=== PATIENT | female | born 1985 ===

== ENCOUNTER → 2017-06-15 | Outpatient (CLI) | payer OTHER ==
--- NOTE | 2017-06-15 08:19 | CT ---
EXAMINATION TYPE: CT chest wo con DATE OF EXAM: 06/15/2017 COMPARISON: NONE HISTORY: ILD CT DLP: 240.4 mGycm High-resolution noncontrast CT of the chest was performed with the patient in the prone and supine po sitions. Lung and mediastinal window settings are submitted. The lungs appear to be well-aerated. I do not see evidence for fibrotic change. There is no eviden ce for bronchiectasis, groundglass infiltrate, nodule or mass. No pleural effusion is identified. I do not see evidence for hilar or mediastinal mass or adenopathy. IMPRESSION: No significant abnormality is seen. Correlate clinically.
== END | disposition home or self-care (01) ==
LOC: RADCTMAIN 07:51
PROVIDERS: ATTEND Internal Medicine
DX: J84.9 Interstitial pulmonary disease, unspecified (principal)
CPT/HCPCS: 71250

== ENCOUNTER → 2022-10-21 | Outpatient (CLI) | payer BC | END | disposition home or self-care (01) | LOC: LABWHC1 13:42 | PROVIDERS: ATTEND Internal Medicine | DX: M06.09 Rheumatoid arthritis without rheumatoid factor, multiple sites (principal) | CPT/HCPCS: 36415; 86480 ==

== ENCOUNTER 2023-05-29 14:11 | Emergency (ER) | payer BC ==
--- NOTE | 2023-05-29 14:48 | ED ---
General Adult HPI - General Source: patient Mode of arrival: ambulatory Limitations: no limitations <Jovita Ward - Last Filed: 05/29/23 14:47> <Robby Fernando - Last Filed: 05/29/23 22:26> - General Chief complaint: Abdominal Pain Stated complaint: Abd pain - History of Present Illness Initial comments: 37-year-old female presents to the emergency department chief complaint of abdominal pain 1 month. She states that recently the pain has gotten longer in duration. She states that it is in her mid to lower abdomen. She denies any aggravating factors. She states that the last 2 days she feels that her bowel movements have been different than they typically are. (Jovita Ward) 37-year-old female with past medical history significant for rheumatoid arthritis presents to ED with a chief complaint of abdominal pain. Patient states for the past month has had pain across her lower abdomen that is waxing and waning in nature. States that she intermittently experiences worsening episodes of the pain lasting 2-3 hours. Rates when pain becomes severe becomes an 8 out of 10 in severity and it makes her nauseous. States when pain improves it is at a constant 1 in severity. Also notes lately that she has been having more small bowel movements compared to her usual bowel movements. Denies urinary symptoms. Denies chest pain or shortness breath. No other complaints. (Robby Fernando) - Related Data Allergies Allergy/AdvReac Type Severity Reaction Status Date / Time No Known Allergies Allergy Verified 05/29/23 14:28 Review of Systems ROS Other: All systems not noted in ROS Statement are negative. <Jovita Ward - Last Filed: 05/29/23 14:47> ROS Other: All systems not noted in ROS Statement are negative. <Robby Fernando - Last Filed: 05/29/23 22:26> ROS Statement: Those systems with pertinent positive or pertinent negative responses have been documented in the HPI. Past Medical History Additional Past Medical History / Comment(s): RA History of Any Multi-Drug Resistant Organisms: None Reported Past Surgical History: Section Past Psychological History: No Psychological Hx Reported Smoking Status: Never smoker Past Alcohol Use History: Rare Past Drug Use History: None Reported <Jovita Ward - Last Filed: 05/29/23 14:47> General Exam Limitations: no limitations <Jovita Ward - Last Filed: 05/29/23 14:47> Limitations: no limitations General appearance: alert, in no apparent distress Eye exam: Present: normal appearance Neck exam: Present: normal inspection Respiratory exam: Present: normal lung sounds bilaterally Cardiovascular Exam: Present: regular rate, normal rhythm GI/Abdominal exam: Present: soft (Minimsl suprapubic tenderness to palpation. No rebound guarding or rigidity. No overlying skin changes.), normal bowel sounds Neurological exam: Present: alert, oriented X3 Skin exam: Present: warm, dry <Robby Fernando - Last Filed: 05/29/23 22:26> - General Exam Comments Initial Comments: Visual Physical Exam Vital signs reviewed General: Well-appearing, nontoxic, no acute distress. Head: Normocephalic, atraumatic Eyes: PERRLA, EOMI ENT: Airway patent Chest: Nonlabored breathing Skin: No visual rash, normal skin tone Neuro: Alert and oriented 3 Musculoskeletal: No gross abnormalities (Jovita Ward) Course Vital Signs 05/29/23 05/29/23 14:24 19:37 Temperature 98.9 F 98.2 F Pulse Rate 69 62 Respiratory 18 16 Rate Blood Pressure 123/69 108/71 O2 Sat by Pulse 99 97 Oximetry Medical Decision Making <Jovita Ward - Last Filed: 05/29/23 14:47> - Lab Data Result diagrams: 05/29/23 18:57 05/29/23 18:57 <Robby Fernando - Last Filed: 05/29/23 22:26> - Medical Decision Making I preformed the quick note portion of this chart. Electronically signed by Jvoita Ward PA-C. (Jovita Ward) Was pt. sent in by a medical professional or institution (JULIETTE Castro, ASSISTANT BASEBALL COACH, urgent care, hospital, or halfway...) When possible be specific @ -No Did you speak to anyone other than the patient for history (EMS, parent, family, police, friend...)? What history was obtained from this source @ -No Did you review nursing and triage notes (agree or disagree)? Why? @ -I reviewed and agree with nursing and triage notes Were old charts reviewed (outside hosp., previous admission, EMS record, old EKG, old radiological studies, urgent care reports/EKG's, halfway records)? Report findings @ -No old charts were reviewed Differential Diagnosis (chest pain, altered mental status, abdominal pain women, abdominal pain men, vaginal bleeding, weakness, fever, dyspnea, syncope, headache, dizziness, GI bleed, back pain, seizure, CVA, palpatations, mental health, musculoskeletal)? @ -Differential Abdominal Pain Women: Appendicitis, Cholecystitis, diverticulosis, ischemic bowel, pancreatitis, hepatitis, UTI, gastroenteritis, AAA, incarcerated hernia, bowel obstruction, constipation, inflammatory bowel, hepatitis, peptic ulcer disease, splenic infarction, perforated viscus, vulvitis, ovarian torsion, PID, kidney stone, placenta abruption, this is not meant to be an all-inclusive list EKG interpreted by me (3pts min.). @ -None X-rays interpreted by me (1pt min.). @ -None done CT interpreted by me (1pt min.). @ -None done U/S interpreted by me (1pt. min.). @ -None done What testing was considered but not performed or refused? (CT, X-rays, U/S, labs)? Why? @ -None What meds were considered but not given or refused? Why? @ -None Did you discuss the management of the patient with other professionals (professionals i.e. , PA, ASSISTANT BASEBALL COACH, lab, RT, psych nurse, social work faculty member, airframe and power plant mechanic, teacher, ground nuclear weapons assembly officer, case briefer)? Give summary @ -No Was smoking cessation discussed for >3mins.? @ -No Was critical care preformed (if so, how long)? @ -No Were there social determinants of health that impacted care today? How? (Homelessness, low income, unemployed, alcoholism, drug addiction, transportation, low edu. Level, literacy, decrease access to med. care, long term, rehab)? @ -No Was there de-escalation of care discussed even if they declined (Discuss DNR or withdrawal of care, Hospice)? DNR status @ -No What co-morbidities impacted this encounter? (DM, HTN, Smoking, COPD, CAD, Cancer, CVA, ARF, Chemo, Hep., AIDS, mental health diagnosis, sleep apnea, morbid obesity)? @ -None Was patient admitted / discharged? Hospital course, mention meds given and route, prescriptions, significant lab abnormalities, going to OR and other pertinent info. @ -Discharge 37-year-old female with no significant past medical history presenting for waxing waning lower abdominal pain for the past month and recent smaller bowel movements. The abdomen and pelvis showed no acute findings are incidental finding of adrenal lipoma versus mass. Patient discharged home in stable condition. Advised establishing PCP for proper follow-up. Discussed return precautions with patient who verbalizes agreement. Undiagnosed new problem with uncertain prognosis? @ -No Drug Therapy requiring intensive monitoring for toxicity (Heparin, Nitro, Insulin, Cardizem)? @ -No Were any procedures done? @ -No Diagnosis/symptom? @ -Abdominal pain Acute, or Chronic, or Acute on Chronic? @ - Acute On chronic Uncomplicated (without systemic symptoms) or Complicated (systemic symptoms)? @ -Uncomplicated Side effects of treatment? @ -No Exacerbation, Progression, or Severe Exacerbation? @ -No Poses a threat to life or bodily function? How? (Chest pain, [place], [place], pneumonia, PE, COPD, DKA, ARF, appy, cholecystitis, CVA, Diverticulitis, Homicidal, Suicidal, threat to staff... and all critical care pts) @ -No (Robby Fernando) - Lab Data Lab Results 05/29/23 05/29/23 05/29/23 Range/Units 18:57 18:57 18:57 WBC 8.3 (3.8-10.6) k/uL RBC 4.57 (3.80-5.40) m/uL Hgb 14.1 (11.4-16.0) gm/dL Hct 42.9 (34.0-46.0) % MCV 93.8 (80.0-100.0) fL MCH 31.0 (25.0-35.0) pg MCHC 33.0 (31.0-37.0) g/dL RDW 12.0 (11.5-15.5) % Plt Count 224 (150-450) k/uL MPV 7.7 Neutrophils % 54 % Lymphocytes % 28 % Monocytes % 4 % Eosinophils % 13 % Basophils % 0 % Neutrophils # 4.4 (1.3-7.7) k/uL Lymphocytes # 2.3 (1.0-4.8) k/uL Monocytes # 0.3 (0-1.0) k/uL Eosinophils # 1.0 H (0-0.7) k/uL Basophils # 0.0 (0-0.2) k/uL Sodium 138 (137-145) mmol/L Potassium 4.2 (3.5-5.1) mmol/L Chloride 103 (98-107) mmol/L Carbon Dioxide 25 (22-30) mmol/L Anion Gap 10 mmol/L BUN 19 H (7-17) mg/dL Creatinine 0.60 (0.52-1.04) mg/dL Est GFR (CKD-EPI)AfAm >90 (>60 ml/min/1.73 sqM) Est GFR (CKD-EPI)NonAf >90 (>60 ml/min/1.73 sqM) Glucose 107 H (74-99) mg/dL Plasma Lactic Acid Chucky 0.9 (0.7-2.0) mmol/L Calcium 9.6 (8.4-10.2) mg/dL Total Bilirubin 1.7 H (0.2-1.3) mg/dL AST 23 (14-36) U/L ALT 23 (4-34) U/L Alkaline Phosphatase 56 (38-126) U/L Total Protein 7.9 (6.3-8.2) g/dL Albumin 4.5 (3.5-5.0) g/dL Amylase 45 (30-110) U/L Lipase 67 (23-300) U/L Urine Color Urine Appearance (Clear) Urine pH (5.0-8.0) Ur Specific [place] (1.001-1.035) Urine Protein (Negative) Urine Glucose (UA) (Negative) Urine Ketones (Negative) Urine Blood (Negative) Urine Nitrite (Negative) Urine Bilirubin (Negative) Urine Urobilinogen (<2.0) mg/dL Ur Leukocyte Esterase (Negative) Urine HCG, Qual (Not Detectd) 05/29/23 05/29/23 Range/Units 18:57 18:57 WBC (3.8-10.6) k/uL RBC (3.80-5.40) m/uL Hgb (11.4-16.0) gm/dL Hct (34.0-46.0) % MCV (80.0-100.0) fL MCH (25.0-35.0) pg MCHC (31.0-37.0) g/dL RDW (11.5-15.5) % Plt Count (150-450) k/uL MPV Neutrophils % % Lymphocytes % % Monocytes % % Eosinophils % % Basophils % % Neutrophils # (1.3-7.7) k/uL Lymphocytes # (1.0-4.8) k/uL Monocytes # (0-1.0) k/uL Eosinophils # (0-0.7) k/uL Basophils # (0-0.2) k/uL Sodium (137-145) mmol/L Potassium (3.5-5.1) mmol/L Chloride (98-107) mmol/L Carbon Dioxide (22-30) mmol/L Anion Gap mmol/L BUN (7-17) mg/dL Creatinine (0.52-1.04) mg/dL Est GFR (CKD-EPI)AfAm (>60 ml/min/1.73 sqM) Est GFR (CKD-EPI)NonAf (>60 ml/min/1.73 sqM) Glucose (74-99) mg/dL Plasma Lactic Acid Chucky (0.7-2.0) mmol/L Calcium (8.4-10.2) mg/dL Total Bilirubin (0.2-1.3) mg/dL AST (14-36) U/L ALT (4-34) U/L Alkaline Phosphatase (38-126) U/L Total Protein (6.3-8.2) g/dL Albumin (3.5-5.0) g/dL Amylase (30-110) U/L Lipase (23-300) U/L Urine Color Colorless Urine Appearance Clear (Clear) Urine pH 6.0 (5.0-8.0) Ur Specific [place] 1.008 (1.001-1.035) Urine Protein Negative (Negative) Urine Glucose (UA) Negative (Negative) Urine Ketones Negative (Negative) Urine Blood Negative (Negative) Urine Nitrite Negative (Negative) Urine Bilirubin Negative (Negative) Urine Urobilinogen <2.0 (<2.0) mg/dL Ur Leukocyte Esterase Negative (Negative) Urine HCG, Qual Not Detected (Not Detectd) Disposition <Jovita Ward - Last Filed: 05/29/23 14:47> Is patient prescribed a controlled substance at d/c from ED?: No Time of Disposition: 22:26 <Robby Fernando - Last Filed: 05/29/23 22:26> Clinical Impression: Abdominal pain Disposition: HOME SELF-CARE Condition: Poor Instructions (If sedation given, give patient instructions): Abdominal Pain (ED) Additional Instructions: Please return to the Emergency Department if symptoms worsen or any other concerns. Referrals: None,Stated [Primary Care Provider] - 1-2 days
[2023-05-29 19:20] LABS: Basophils % (A) 0 %; Eosinophils % (A) 13 %; HCT 42.9 % (34.0-46.0); HGB 14.1 gm/dL (11.4-16.0); Lymphocytes # (A) 2.3 k/uL (1.0-4.8); Lymphocytes % (A) 28 %; MCV 93.8 fL (80.0-100.0); Mean Platelet Volume 7.7; Monocytes # (A) 0.3 k/uL (0-1.0); Monocytes % (A) 4 %; Neutrophils # (A) 4.4 k/uL (1.3-7.7); Neutrophils % (A) 54 %; Platelet Count 224 k/uL (150-450); RBC 4.57 m/uL (3.80-5.40); WBC 8.3 k/uL (3.8-10.6)
[2023-05-29 19:32] LABS: ALT 23 U/L (4-34); AST 23 U/L (14-36); African American GFR (CKD) >90 (>60 ml/min/1.73 sqM); Albumin 4.5 g/dL (3.5-5.0); Alkaline Phosphatase 56 U/L (38-126); Amylase 45 U/L (30-110); Anion Gap 10 mmol/L; Blood Urea Nitrogen 19 mg/dL (7-17); Calcium 9.6 mg/dL (8.4-10.2); Carbon Dioxide 25 mmol/L (22-30); Chloride 103 mmol/L (98-107); Glucose 107 mg/dL (74-99); Lipase 67 U/L (23-300); Non-African American GFR(CKD) >90 (>60 ml/min/1.73 sqM); Potassium 4.2 mmol/L (3.5-5.1); Sodium 138 mmol/L (137-145); Total Bilirubin 1.7 mg/dL (0.2-1.3); Total Protein 7.9 g/dL (6.3-8.2)
[2023-05-29 19:38] VITALS: RESP 16
--- NOTE | 2023-05-29 20:14 | CT ---
EXAMINATION TYPE: CT abdomen pelvis w con CT DLP: 634.2 mGycm, Automated exposure control for dose reduction was used. DATE OF EXAM: 05/29/2023 8:00 PM COMPARISON: 2010 CLINICAL INDICATION:Female, 37 years old with history of suprapubic TTP; upper abdominal pain x1 randal h TECHNIQUE: Axial CT of the abdomen and pelvis. Sagittal and coronal reformats were created on a [employer] workstation. Contrast used:100 mL of Isovue 300 with IV Contrast, (none if empty) Oral contrast used: without Oral Contrast (none if empty) FINDINGS: LOWER CHEST: Unremarkable ABDOMEN LIVER: Right hepatic lobe simple appearing cyst. GALLBLADDER AND BILE DUCTS: The gallbladder is contracted. PANCREAS: Unremarkable. SPLEEN: Splenule is present. ADRENAL GLANDS: Left adrenal lipoma versus adenoma measuring 16 mm. The right adrenal glands unremark able. KIDNEYS AND URETERS: No evidence of hydronephrosis. No obstructing left renal calculi measuring up to 4 mm and on the right measuring up to 3 mm.. The ureters are unremarkable. PELVIS BLADDER: Unremarkable REPRODUCTIVE: Unremarkable. ABDOMEN & PELVIS STOMACH AND BOWEL: No evidence of bowel obstruction. Moderate amount of stool seen throughout the col on. Small bowel feces seen throughout the abdomen small bowel. Few scattered colonic diverticula. PERITONEUM/RETROPERITONEUM: No evidence of pneumoperitoneum or free fluid. VASCULATURE: No evidence of aortic aneurysm. MUSCULOSKELETAL: No acute osseous abnormalities LYMPH NODES: No gross evidence for lymphadenopathy. SOFT TISSUE/ABDOMINAL WALL: Fat-containing umbilical hernia. IMPRESSION: 1. Moderate amount stool throughout the colon with small bowel feces correlate for fecal stasis/ileu s. 2. Bilateral nonobstructing renal calculi. 3. Mild colonic diverticulosis. 4. Left adrenal nodule likely representing a myelolipoma versus adrenal adenoma. Consider adrenal ma protocol MRI.
[2023-05-29 20:18] LABS: Appearance,Urine Clear (Clear); Bilirubin,Urine Negative (Negative); Blood,Urine Negative (Negative); Color,Urine Colorless; Glucose,Urine (UA) Negative (Negative); Ketones,Urine Negative (Negative); Leukocyte Esterase,Urine Negative (Negative); Nitrite,Urine Negative (Negative); Protein,Urine Negative (Negative); Specific Gravity,Urine 1.008 (1.001-1.035); Urobilinogen,Urine <2.0 mg/dL (<2.0)
[2023-05-29 22:46] VITALS: BP 113/75; PULSE 58; TEMP 98.7
== END 2023-05-29 22:46 | disposition home or self-care (01) ==
LOC: EC 14:11
DX: N20.0 Calculus of kidney (principal); K57.30 Diverticulosis of large intestine without perforation or abscess without bleeding
CPT/HCPCS: 99284; 80053; 82150; 83605; 83690; 85025; 81003; 81025; 74177; Q9967; 36415

== ENCOUNTER → 2023-09-30 | Outpatient (CLI) | payer BC ==
--- NOTE | 2023-10-01 14:37 | BD ---
EXAMINATION TYPE: Axial Bone Density DATE OF EXAM: 09/30/2023 CLINICAL HISTORY: 37 years old Female. ICD-10 CODE: Z13.820 screening for osteoporosis Height: 63.5" Weight: 134.9lbs FRAX RISK QUESTIONS: Alcohol (3 or more units per day): No Family History (Parent hip fracture): No Glucocorticoids (More than 3mos): Yes, in the past she has been on steroids for RA treatment (Ex: prednisone, prednisolone, methylprednisolone, dexamethasone, and hydrocortisone). History of Fracture in Adulthood: No Secondary Osteoporosis: 1. Type 1 Diabetes: No 2. Hyperthyroidism: No 3. Menopause before 45: No 4. Malnutrition: No 5. Chronic liver disease: No Rheumatoid Arthritis: Yes Current Tobacco Use: No RISK FACTORS HISTORY OF: Hip Fracture (Right/Left): No Spine Fracture: No History of Wrist Fracture: No Surgery to Spine/Hip(right/left)/Wrist (right/left): No Family History of Osteoporosis: Yes, maternal grandmother Active: Yes Diet low in dairy products/other sources of calcium: Yes Postmenopausal woman: No If Premenopausal, do you have irregular periods: Lost more than 2 inches in height since high school: No Frequent falls: No Poor Health: No Hyperparathyroidism: No Adrenal Insufficiency: No MEDICATIONS: Prednisone or other steroids: Yes How Long: A few years for treatment of RA Thyroid Medications: No Osteoporosis Medications: No Additional Medications: Vitamin D Additional History: Hx of Rheumatoid Arthritis and steroid treatment EXAM MEASUREMENTS: Bone mineral densitometry was performed using the [employer] System. Bone mineral density as measured about the Lumbar spine is: ----- L1-L4(G/cm2): 1.119 T Score Values are as follows: ----- L1: -0.5 ----- L2: -0.8 ----- L3: -0.4 ----- L4: -0.5 ----- L1-L4: -0.5 Z Score Values are as follows: ----- L1: -0.4 ----- L2: -0.7 ----- L3: -0.2 ----- L4: -0.4 ----- L1-L4: -0.4 Baseline @[facility] Bone mineral density about the R hip (g/cm2): 0.876 Bone mineral density about the L hip (g/cm2): 0.942 T Score values are as follows: -----R Neck: -1.3 -----L Neck: -0.6 -----R Total: -1.0 -----L Total: -0.5 Z Score values are as follows: -----R Neck: -0.8 -----L Neck: -0.1 -----R Total: -0.8 -----L Total: -0.3 Baseline @[facility] FRAX%s: N/A IMPRESSION: Osteopenia (T Score between -2.5 and -1). There is slightly increased risk of fracture and the patient may be considered for treatment. Re-Screen 2-5 years. NOTE: T-SCORE=SD OF THE YOUNG ADULT MEAN.
== END | disposition home or self-care (01) ==
LOC: RADBDWWP 15:37
PROVIDERS: ATTEND Family Medicine
DX: Z13.820 Encounter for screening for osteoporosis (principal); M85.851 Other specified disorders of bone density and structure, right thigh
CPT/HCPCS: 77080

== ENCOUNTER → 2023-10-21 | Outpatient (CLI) | payer BC ==
--- NOTE | 2023-10-21 12:14 | CT ---
EXAMINATION TYPE: CT abdomen w con DATE OF EXAM: 10/21/2023 COMPARISON: NONE HISTORY: 37-year-old female K76.9 LIVER DISEASE, UNSPECIFIED,D73.89 OTHER disease. Abnormal Liver fu nction, abn liver US TECHNIQUE: Contiguous axial scanning of the abdomen following administration of 100 ml Isovue 300 IV contrast. Delayed images through the kidneys and coronal/sagittal reconstructions performed. CT DLP: 466 mGycm Automated exposure control for dose reduction was used. FINDINGS: Heart normal size without pericardial effusion. Lung bases clear without pleural effusion. Liver normal size. A couple benign hepatic cysts are present in the right liver lobe measuring up to 1.7 cm. No biliary ductal dilatation. Portal venous system is patent. Gallbladder, adrenal glands, spleen, and pancreas within normal limits. Nonobstructive 3 mm right renal calculus. A couple nonobstructive left renal calculi measuring up tor 4 mm. Symmetric uptake and excretion of contrast from both kidneys. No dilated small bowel, free fluid, or free air. No mesenteric or retroperitoneal adenopathy. Moderate stool burden. No pericolic inflammatory change. Pelvis not imaged. Bones: No osseous destructive process. IMPRESSION: 1. A COUPLE BENIGN RIGHT HEPATIC CYSTS MEASURING UP TO 1.7 CM. No biliary ductal dilatation seen. 2. Moderate stool burden. 3. Nonobstructive nephrolithiasis measuring up to 4 mm.
== END | disposition home or self-care (01) ==
LOC: RADCTMAIN 11:31
PROVIDERS: ATTEND Family Medicine
DX: K76.89 Other specified diseases of liver (principal); D73.89 Other diseases of spleen; N20.0 Calculus of kidney; K56.41 Fecal impaction
CPT/HCPCS: 74160; Q9967

== ENCOUNTER 2025-01-08 06:50 | Day surgery (SDC) | payer BC ==
[~2025-01-08 06:50] MED LIST: LIDOCAINE 1% (10MG/ML) FOR IV START INTRADERMA PRN
[2025-01-08] MEDS ORDERED: ONDANSETRON 4 MG/2 ML VIAL IVP PRN (07:00)
[2025-01-08 07:28] VITALS: TEMP 97
[2025-01-08] MEDS: LACTATED RINGERS 1,000 ML IV ONE (07:29)
[2025-01-08] MEDS: LACTATED RINGERS 1,000 ML IV SCH (07:37)
[2025-01-08] MEDS ORDERED: PROPOFOL 10 MG/ML 20 ML VIAL IV ONE (07:59)
[2025-01-08] MEDS ORDERED: LIDOCAINE 1% INJ 10MG/ML (20 ML MDV) ONE (07:59)
--- NOTE | 2025-01-08 08:26 | P.PCN ---
Date of Procedure: 01/08/25 Procedure(s) Performed: Brief history: Patient is a pleasant 39-year-old white female scheduled for an elective upper endoscopy as well as colonoscopy as a part of evaluation of intermittent dysphagia to solids and rectal bleeding for the last 6 months duration Procedure performed: Esophagogastroduodenoscopy with biopsy and dilation Colonoscopy Preoperative diagnosis: Intermittent dysphagia to solids Rectal bleeding Anesthesia: MAC Procedure: After informed consent was obtained from the patient was brought into the endoscopy unit and IV sedation was administered by anesthesia under continuous monitoring. Initially upper endoscopy was done. The Olympus GF 160 video endoscope was inserted inserted into the mouth and esophagus intubated without any difficulty and was gradually advanced into the stomach and duodenum and carefully examined. The bulb and second part of the duodenum appeared normal. The scope was then withdrawn into the stomach adequately insufflated with air and upon careful examination the antrum and mild gastritis and biopsies were done from this area. Mucosa of the and body, cardia and fundus appeared normal. The scope was then withdrawn into the esophagus. Small hiatal hernia noted. There was distal esophageal Schatzki's ring identified that was dilated using 18 to 20 mm TTS balloon for 60 seconds. The GE junction was located at 40 cm to the incisors. Mucosa of the esophagus appeared normal. There were no erosions or ulcerations identified. Multiple biopsies were done from the mid and distal esophagus to rule out eosinophilic esophagitis. Patient tolerated the procedure well. At this time the patient continued to remain sedation. Initial digital rectal examination was normal. Olympus CF 160 video colonoscope was then inserted into the rectum and gradually advanced to the cecum without any difficulty. Careful examination was performed as the scope was gradually being withdrawn. The prep was excellent. The cecum, ascending colon, transverse colon, descending colon, sigmoid colon and rectum appeared normal. Retroflexion was performed in the rectum and no lesions were noted. Patient tolerated the procedure well. Impression: 1. Upper endoscopy revealed distal esophageal Schatzki's ring status post balloon dilation using 18 to 20 mm TTS balloon and mild antral gastritis 2. Colonoscopy was within normal limits with no evidence of colorectal neoplasia Recommendations: Findings of this examination were discussed with the patient as well as her family. She was advised to be on clear liquids for 2 hours. Follow-up with the biopsy results. Recommend high-fiber diet and fiber supplements Follow-up in the office in 2 to 3 weeks. Advised on repeat screening colonoscopy in 10 years.
[2025-01-08 08:32] VITALS: BP 95/59; PULSE 73; RESP 18
== END 2025-01-08 09:33 | disposition home or self-care (01) ==
LOC: ORWHC2ENDO 06:50
PROVIDERS: ATTEND Internal Medicine Gastroenterology
DX: K22.2 Esophageal obstruction (principal); K29.50 Unspecified chronic gastritis without bleeding; K44.9 Diaphragmatic hernia without obstruction or gangrene
CPT/HCPCS: 81025; 45378; 43239; 43249; J2003; J2704; C1726; 88305